=== PATIENT | male | born 1980 | race Caucasian/White ===

== ENCOUNTER 2024-03-04 23:30 | Emergency (ER) | payer OTHER, SELFPAY ==
[2024-03-04 23:36] VITALS: BP 126/89
[2024-03-05] MEDS: NORCO 5/325 2 TABLET PO (00:03)
--- NOTE | 2024-03-05 00:43 | ED.GENMED ---
History of Present Illness
General
Chief Complaint: Musculo-Skeletal Complaint
Source: patient
Exam Limitations: none
Time Seen by Provider: 03/04/24 23:52
History of Present Illness
History of Present Illness:
43-year-old male was playing ice hockey when he injured his right forearm. The patient states he was going for rebound is not really sure exactly how he injured his arm but fell and toward the boards. He is not sure if he landed on the stick or
was kneed in that area. Complains of pain to the medial aspect of the forearm. Pain radiates up toward his elbow down towards his wrist. Denies any other injuries
Past History
Past History
ED Past Medical History: GERD, HTN and Hypercholesterolemia
ED Past Surgical History: Other (Lasix, wisdom teeth, vasectomy)
Social History
Tobacco: Former smoker
Family History
Family History: Other (Father with coronary disease at 55 and follow with prostate cancer and mother with melanoma. There is also family history of colon cancer)
Phy Exam
Physical Exam
Physical Exam:
CONSTITUTIONAL Vital signs reviewed, Patient alert and oriented to person, place and time. Well-appearing
HEAD atraumatic, normocephalic.
EYES eyelids normal to inspection, Extraocular muscles intact, Conjunctiva normal, Sclera normal.
NECK normal range of motion, Trachea midline, no jugular venous distention.
RESP no respiratory distress
BACK No obvious deformities
UPPER EXTREMITY Limited range of motion due to deformity and pain, small deformity noted to the ulnar aspect of the mid forearm. Moderate tenderness to the mid ulna. Normal distal cap refill. Normal distal pulses and sensation. Gross motor
strength normal
LOWER EXTREMITY Gross range of motion normal, Gross motor strength normal
NEURO Speech normal, No focal motor deficits include, [place] coma scale 15, Memory normal, Cranial Nerves intact to screening exam.
SKIN Skin warm, dry, and normal in color.
PSYCHIATRIC Patient oriented to person place and time, Normal affect.
Course
Orders/Labs/Results
Orders:
Orders
03/05/24 00:00
Hydrocodone 5/APAP 325 [[place] 5/325] 2 tablet .ROUTE .STK-MED ONE
Hydrocodone 7.5/APAP 325 [[place] 7.5/325] 2 tablet .ROUTE .STK-MED ONE
03/05/24 00:03
Hydrocodone 5/APAP 325 [[place] 5/325] 2 tablet PO NOW STA
03/05/24 00:10
CR Forearm - Right 2 View Urgent
Reason For Exam: injury, pain
03/05/24 00:42
Splints/Slings/Crut- Treatment ONCE
Location: Right
Type of Splint: Sugar [place]
Vital Signs
Initial and Last Documented VS:
Initial Vital Signs
Temp Pulse Resp BP Pulse Ox
97.5 F 99 18 126/89 96
03/04/24 23:36 03/04/24 23:36 03/04/24 23:36 03/04/24 23:36 03/04/24 23:36
Last Documented Vital Signs
Temp Pulse Resp BP Pulse Ox
97.5 F 99 18 126/89 96
03/04/24 23:36 03/04/24 23:36 03/04/24 23:36 03/04/24 23:36 03/04/24 23:36
MDM/Problems Addressed
MDM/Problems Addressed:
Midshaft ulna fracture
*Radiology
Radiology exam reviewed: preliminary read by ED provider (50% displaced midshaft ulna fracture)
*Pulse Oximetry
Patient hypoxic: no
*Critical Care Note
Total Time (30-74mins, 75-104mins- exclusive of procedures): Not Applicable
Data Reviewed
Source: patient
Patient Management
Escalation/DeEscalation of care consider admission/obs:
Midshaft ulna fracture. For now we will splint and follow-up with outpatient upper extremity orthopedics
ED Attending Note
-
Portions of this chart may have been created with voice recognition software.� Occasional wrong word or��sound alike� substitutions may have occurred due to the inherent limitations of voice recognition software.
Discharge Plan
Departure
Patient Disposition: Home (Routine Discharge)
Date of Disposition: 03/05/24
Time of Disposition: 00:45
Patient with high blood pressure during this ER visit?: No
Discharge Problem:
Fracture, ulna
Instructions: Forearm fracture
Prescriptions:
No Action
hydrocodone-acetaminophen 1 TABLET tablet
1 tab PO Q4HPRN PRN (Reason: Pain) Qty: 10 0RF
tamsulosin [Flomax] 0.4 MG capsule
0.4 mg PO Daily Qty: 7 0RF
ondansetron 4 MG tablet,disintegrating
4 mg PO TIDPRN PRN (Reason: Nausea) Qty: 10 0RF
doxycycline hyclate 100 MG capsule
100 mg PO Q12 Qty: 20 0RF
ibuprofen 800 MG tablet
800 mg PO QIDPRN PRN (Reason: pain, fever. Take with food.) Qty: 30 0RF
Referrals:
Juan Alvarez MD [Active] -
Aris Sosa DO [Family Provider] -
Activity Restrictions/Additional Instructions:
Please ice your injury. Return immediately for numbness, tingling, worsening pain or any other concerns.
Interventions
Interventions:
*Risk Screen - Suicide Last Done: 03/04/24 23:36
*General Assessment Last Done: 03/04/24 23:36
*Neglect/Abuse Screening Last Done: 03/04/24 23:36
ED-Musculoskeletal Assessment Last Done: 03/05/24 00:11
Discharge Date and Time
Print Language: RUSSIAN
[2024-03-05] MEDS: MOTRIN 600 MG PO (01:32)
[2024-03-05 01:37] VITALS: BP 138/66
== END 2024-03-05 01:39 | disposition home or self-care (01) ==
LOC: EMR 23:30
PROVIDERS: EMERGENCY PHYSICIAN Emergency Medicine; FAMILY PHYSICIAN Family Medicine
DX: S52.291A Other fracture of shaft of right ulna, initial encounter for closed fracture (principal); W18.39XA Other fall on same level, initial encounter; Y93.22 Activity, ice hockey; Y92.330 Ice skating rink (indoor) (outdoor) as the place of occurrence of the external cause; I10 Essential (primary) hypertension; E78.00 Pure hypercholesterolemia, unspecified; K21.9 Gastro-esophageal reflux disease without esophagitis; Z87.891 Personal history of nicotine dependence
CPT/HCPCS: 99283; 29125; 73090